=== PATIENT | male | born 1950 | race Caucasian/White ===

== ENCOUNTER 2019-10-03 11:24 | Outpatient (CLI) | payer MEDICARE ==
--- NOTE | 2019-10-03 15:55 | RAD ---
LUMBAR SPINE THREE VIEWS: 10/03/19 Some minor curvature to the spine is present. There is multilevel degenerative disc disease, particu larly L3-L4, L4-L5 and L5-S1. There is also a little bit of narrowing at L1-L2. Osteophytes are seen anteriorly and posteriorly, particularly in the lower levels. MRI would be more definitive than notin g any neural impingement. The SI joints appear normal. IMPRESSION: Diffuse degenerative changes with multilevel degenerative disc disease. POS: HOME
== END 2019-10-03 11:25 | disposition home or self-care (01) ==
LOC: BURRAD 11:24
PROVIDERS: ATTEND Physician Assistant
DX: M54.32 Sciatica, left side (principal); M51.36 Other intervertebral disc degeneration, lumbar region; M47.816 Spondylosis without myelopathy or radiculopathy, lumbar region
CPT/HCPCS: 72100